=== PATIENT | female | born 1955 | race Caucasian/White ===

== ENCOUNTER → 2016-11-22 | Outpatient (CLI) | payer MEDICARE ==
--- NOTE | 2016-11-22 10:15 | XR ---
EXAMINATION TYPE: XR KUB DATE OF EXAM: 11/22/2016 9:57 AM COMPARISON: 05/11/2016 HISTORY: Left renal stones TECHNIQUE: One view abdominal series FINDINGS: The osseous structures are intact. The bowel gas pattern is nonspecific. Previous cholecystectomy cl ips noted. Left kidney: There are 3 left renal stones the largest in the lower pole measuring 1 cm. Additional p unctate adjacent fourth stone measuring 1 mm. Right kidney: There is a punctate 2 mm calcification overlying the mid right kidney suspicious for re nal stone. Radiopaque densities appear to be contained with bowel lying outside the renal outline there is exten sive retained fecal debris. Arthropathy of the hips noted and degenerative change of the spine. IMPRESSION: 1. Stable appearing nephrolithiasis
== END | disposition home or self-care (01) ==
LOC: RADXRMAIN 09:37
PROVIDERS: ATTEND Urology
DX: N20.0 Calculus of kidney (principal)
CPT/HCPCS: 74000

== ENCOUNTER → 2018-04-11 | Outpatient (CLI) | payer MEDICARE ==
--- NOTE | 2018-04-11 14:16 | XR ---
EXAMINATION TYPE: XR KUB DATE OF EXAM: 04/11/2018 COMPARISON: 11/22/2016 HISTORY: Right ureteral and left renal calculi TECHNIQUE: One view abdominal series FINDINGS: Scoliosis of the spine seen with evidence of previous gallbladder surgery. Left kidney: There are approximately 5 left-sided renal calculi the largest measuring 1.1 cm. Compare d to be stable in size and position relative to the previous exam. Right kidney: No suspicious calcifications overlying the right kidney. However, there are multiple ca lcific densities overlying the sacrum at the level the mid SI joint the largest measuring a diameter of 4.5 mm. Do not definitively see the punctate calcification seen within the suspected lower pole on today's exam. Arthropathy of the hips noted. No suspicious calcifications within the lower pelvis. IMPRESSION: 1. Stable appearing left renal nephrolithiasis as discussed and measured above. 2. There are now multiple calcifications overlying the sacrum at the level of the mid SI joint at milly st one of which likely is within the course of the ureter. The largest measures a diameter 4.5 mm. Ov erall similar in location relative to the suspected previous right-sided ureteral calculi
== END | disposition home or self-care (01) ==
LOC: RADXRMAIN 13:56
PROVIDERS: ATTEND Urology
DX: N20.0 Calculus of kidney (principal)
CPT/HCPCS: 74018

== ENCOUNTER → 2019-08-06 | Outpatient (CLI) | payer MEDICARE ==
--- NOTE | 2019-08-06 12:47 | XR ---
KUB HISTORY: Calculus of kidney Single frontal KUB correlated to prior exam 04/11/2018 The calcifications seen overlying the left kidney are no longer evident with the exception of a singl e calcification overlying the last rib on the left measuring approximately 4 mm. There are calcificat ions seen along the distribution of the distal left ureter however, at least 2 are present one of whi ch measures approximately 8 to 9 mm and the second measures approximately 12 mm. Surgical clips prese nt in the right upper quadrant. Punctate calcifications are present within the pelvis. IMPRESSION: Left nephrolithiasis, left distal ureteral calculi.
== END ==
LOC: RADXRMAIN 10:18
PROVIDERS: ATTEND Urology
DX: N20.2 Calculus of kidney with calculus of ureter (principal)
CPT/HCPCS: 74018

== ENCOUNTER → 2019-08-13 | Outpatient (CLI) | payer MEDICARE ==
--- NOTE | 2019-08-13 13:43 | CT ---
EXAMINATION TYPE: CT abdomen pelvis wo con DATE OF EXAM: 08/13/2019 COMPARISON: None HISTORY: 64-year-old female with Renal colic CT DLP: 855.3 mGycm. Automated exposure control for dose reduction was used. TECHNIQUE: Contiguous axial scanning of the abdomen and pelvis without IV contrast. Coronal and sagit christina reconstructions performed. FINDINGS: Heart size without pericardial effusion. 7 mm right basilar pulmonary nodule. No pleural effusion. Asymmetric elevation of the left hemidiaphragm. Mildly enlarged at 18.1 cm. Otherwise, noncontrast appearance of the liver, adrenal glands, spleen, a nd pancreas within normal limits. Suspect underlying parapelvic cysts within the right kidney. There is severe left-sided hydronephrosis and corresponding hydroureter with a large 1.0 cm calculus impacted in the distal third left ureter. In addition, 2 adjacent 6 mm calculi are present within the dilated mid left ureter. Couple additional nonobstructive left renal calculi measuring 6 mm in the midpole and 3 mm in the upp er pole. No dilated small bowel, free fluid, or free air. No mesenteric or retroperitoneal lymphadenopathy. Normal appendix. Mild stool wording. A couple diverticula within the distal sigmoid. No pericolonic i nflammatory change. Mild circumferential bladder wall thickening. Uterus surgically absent. Neither ovary clearly visuali zed. No abnormal fluid collection in the pelvis or pelvic lymphadenopathy. Bones: Facet arthropathy lower lumbar spine. No osseous destructive process. IMPRESSION: 1. Severe left-sided hydronephrosis and hydroureter secondary to a 1 cm stone impacted in the distal third left ureter. 2. There are two additional 6 mm calculi within the dilated mid left ureter. 3. A couple nonobstructive left renal calculi measuring 6 mm and 2 to 3 mm. 4. 7 mm right basilar pulmonary nodule is nonspecific. Recommend nonemergent contrast enhanced CT ch est to survey the entire lungs. 5. Mild circumferential bladder wall thickening may be chronic in this patient. Correlate to exclude cystitis.
== END ==
LOC: RADCTMAIN 13:04
PROVIDERS: ATTEND Urology
DX: N13.2 Hydronephrosis with renal and ureteral calculous obstruction (principal); N32.89 Other specified disorders of bladder
CPT/HCPCS: 74176

== ENCOUNTER → 2019-08-22 | Outpatient (CLI) | payer MEDICARE ==
[2019-08-22 12:13] LABS: Basophils % (A) 1 %; Eosinophils # (A) 0.1 k/uL (0-0.7); Eosinophils % (A) 2 %; HCT 43.7 % (34.0-46.0); HGB 13.9 gm/dL (11.4-16.0); Hypochromasia Slight; Lymphocytes # (A) 1.8 k/uL (1.0-4.8); Lymphocytes % (A) 28 %; MCH 28.6 pg (25.0-35.0); MCHC 31.8 g/dL (31.0-37.0); MCV 90.1 fL (80.0-100.0); Mean Platelet Volume 6.3; Monocytes # (A) 0.3 k/uL (0-1.0); Monocytes % (A) 4 %; Neutrophils # (A) 4.1 k/uL (1.3-7.7); Neutrophils % (A) 62 %; Platelet Count 318 k/uL (150-450); RBC 4.85 m/uL (3.80-5.40); RDW 13.8 % (11.5-15.5); WBC 6.6 k/uL (3.8-10.6)
[2019-08-22 20:14] LABS: African American GFR (CKD) 56.1 (60.0-200.0); Anion Gap 9.9 mmol/L (4.00-12.00); BUN/Creat Ratio 22.5 Ratio (12.00-20.00); Calcium 10.1 mg/dL (8.7-10.3); Carbon Dioxide 27.1 mmol/L (21.6-31.8); Non-African American GFR(CKD) 48.4 (60.0-200.0); Potassium 3.8 mmol/L (3.5-5.5)
== END | disposition home or self-care (01) ==
LOC: LABWHC1 11:31
PROVIDERS: ATTEND Urology
DX: N20.1 Calculus of ureter (principal); Z88.5 Allergy status to narcotic agent; Z88.6 Allergy status to analgesic agent
CPT/HCPCS: 36415; 80048; 85025

== ENCOUNTER → 2020-08-05 | Outpatient (CLI) | payer MEDICARE ==
--- NOTE | 2020-08-05 11:52 | XR ---
KUB HISTORY: N 20.0 Frontal KUB and 2 images correlated to prior KUB 08/06/2019, CT 08/13/2019 Calcification seen on previous exam of the left hemipelvis are no longer seen. There is a spinal curv ature, degenerative disc change, facet arthropathy in the lower lumbar spine. No evident bowel obstru ction or pneumoperitoneum. Lung bases are clear. Surgical clips are present right upper quadrant. Ove rlying bowel gas may obscure underlying detail, there is overlying artifact. IMPRESSION: Interval improvement in the calcifications in the left hemipelvis, the previously identif ied calcification in the upper pole of left kidney not seen definitively.
== END | disposition home or self-care (01) ==
LOC: RADXRMAIN 11:01
PROVIDERS: ATTEND Urology
DX: N20.0 Calculus of kidney (principal)
CPT/HCPCS: 74018

== ENCOUNTER → 2021-08-04 | Outpatient (CLI) | payer MEDICARE ==
--- NOTE | 2021-08-04 16:38 | XR ---
KUB HISTORY: Postop follow-up KUB submitted on 2 images and correlated to prior exam 08/05/2020 There are calcifications superimposed over the left kidney one of which measures approximately 6 mm, additional calcification measures approximately 1 to 2 mm. There is a scoliotic curvature to the spin e. Surgical clips are present in the right upper quadrant. No evident bowel obstruction or pneumoperi toneum. Bone mineralization is stable. IMPRESSION: Findings could represent left-sided nephrolithiasis.
== END | disposition home or self-care (01) ==
LOC: RADXRMAIN 13:31
PROVIDERS: ATTEND Urology
DX: N20.0 Calculus of kidney (principal)
CPT/HCPCS: 74018

== ENCOUNTER → 2022-09-29 | Outpatient (CLI) | payer MEDICARE ==
--- NOTE | 2022-09-29 12:23 | XR ---
EXAMINATION TYPE: XR KUB DATE OF EXAM: 09/29/2022 COMPARISON: NONE HISTORY: Pain TECHNIQUE: One view abdominal series FINDINGS: The osseous structures are intact. The bowel gas pattern is nonspecific. Surgical clips right upper quadrant. Hypertrophic degenerative changes in the spine. Stable 6 mm left renal calculus. There is a 1-2 mm calcification left kidney. IMPRESSION: 1. Stable left nephrolithiasis.
== END | disposition home or self-care (01) ==
LOC: RADXRMAIN 11:17
PROVIDERS: ATTEND Urology
DX: N20.0 Calculus of kidney (principal)
CPT/HCPCS: 74018

== ENCOUNTER 2022-11-30 06:44 | Day surgery (SDC) | payer MEDICARE ==
[2022-11-25 15:03] VITALS: BMI 33.8
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
--- NOTE | 2022-11-30 07:04 | XR ---
EXAMINATION TYPE: XR KUB DATE OF EXAM: 11/30/2022 6:59 AM CLINICAL HISTORY: Ureter calculus. Left-sided kidney stone TECHNIQUE: Two supine KUB images of the abdomen are obtained. COMPARISON: Abdominal x-ray September 29, 2022. FINDINGS: Prior visualized horizontal 6 mm left renal calculus not clearly seen on current study. No definite nephrolithiasis current study. Overall nonobstructive bowel gas pattern. Cholecystectomy clips redemonstrated. Additional clip below these again seen. Slight scoliotic curvature. IMPRESSION: As above.
[2022-11-30] MEDS ORDERED: HYDROmorphone 0.5 MG/0.5 ML SYRINGE IVP PRN (07:39)
[2022-11-30] MEDS ORDERED: DEXAMETHASONE SOD PHOSPHATE 4 MG/ML 1 ML VIAL IV ONE (07:39)
[2022-11-30] MEDS ORDERED: LACTATED RINGERS 1,000 ML IV SCH (07:39)
[2022-11-30] MEDS ORDERED: LIDOCAINE 1% (10MG/ML) FOR IV START INTRADERMA PRN (07:39)
[2022-11-30] MEDS ORDERED: ONDANSETRON 4 MG/2 ML VIAL IVP ONE (07:39)
[2022-11-30 08:10] LABS: Glucose,Whole Blood 189 mg/dL (70-110)
[2022-11-30 08:13] VITALS: RESP 16
[2022-11-30] MEDS ORDERED: PHENYLEPHRINE-0.9% NACL SYG 1,000 MCG/10 ML SYRINGE ONE (08:24)
[2022-11-30] MEDS ORDERED: ROCURONIUM 10 MG/ML (5 ML VIAL) IV ONE (08:24)
[2022-11-30] MEDS ORDERED: PROPOFOL 10 MG/ML 20 ML VIAL IV ONE (08:24)
[2022-11-30] MEDS ORDERED: LIDOCAINE 2% INJ 20 MG/ML (2 ML VIAL) ONE (08:24)
[2022-11-30] MEDS ORDERED: MIDAZOLAM 2 MG/2 ML VIAL ONE (08:24)
[2022-11-30] MEDS ORDERED: fentaNYL (PF) 50 MCG/ML 2 ML AMP ONE (08:24)
[2022-11-30] MEDS ORDERED: SUCCINYLCHOLINE CHLORIDE 200 MG/10 ML VIAL IV ONE (08:24)
[2022-11-30] MEDS ORDERED: IOPAMIDOL-370 50ML BTL MISCELLANE ONE (09:06)
--- NOTE | 2022-11-30 09:29 | P.OP ---
Date of Procedure: 11/30/22 Preoperative Diagnosis: Painful left renal stone Postoperative Diagnosis: Same Procedure(s) Performed: Cystoscopy, left ureteral renal renoscopy with laser lithotripsy Anesthesia: GIOVANI Surgeon: Connor Rankin Estimated Blood Loss (ml): 0 Pathology: none sent Condition: stable Disposition: PACU Indications for Procedure: The patient is 67. She has a history of kidney stones. She's been having back pain. A KUB identified a 7 mm mid renal stone on the left. She comes for urete ral renoscopy and laser lithotripsy left. Description of Procedure: Patient brought to the operating suite. Given general anesthesia. Placed lithotomy position with a sterile prep and drape. Cystoscopy identifies a normal bladder. Both ureteral orifices are normal. The left ureteral orifice is intubated with an 035 wire into the kidney. Over the wire is passed 11-13- Thai reentry sheath. I passed the flexible ureteroscope up into the kidney. The largest stone was identified and broken into tiny fragments so. There are 3 other 2 mm stones identified and broken up. Then the procedure there is no stones bigger than 1 mm a. These fragments will draining out of the kidney. The ureteroscope was removed. The bladder is drained. The patient is awakened and returned recovery room in good condition. She'll be discharged home upon recovery and found the office in 2 weeks.
[2022-11-30 09:48] VITALS: TEMP 97
--- NOTE | 2022-11-30 11:20 | FL ---
EXAMINATION TYPE: FL urography retrograde DATE OF EXAM: 11/30/2022 COMPARISON: NONE HISTORY: Fluoroscopy time. Fluoroscopy was provided to the referring clinician. 30 SECS FLUORO. [id number] gYCM2 DAP.
[2022-11-30 11:39] VITALS: BP 113/78; PULSE 76
== END 2022-11-30 11:59 | disposition home or self-care (01) ==
LOC: OR 06:44
PROVIDERS: ATTEND Urology
DX: N20.0 Calculus of kidney (principal); I48.91 Unspecified atrial fibrillation; E11.9 Type 2 diabetes mellitus without complications; K21.9 Gastro-esophageal reflux disease without esophagitis; I10 Essential (primary) hypertension; E78.5 Hyperlipidemia, unspecified; Z86.73 Personal history of transient ischemic attack (TIA), and cerebral infarction without residual deficits; Z98.890 Other specified postprocedural states; Z86.59 Personal history of other mental and behavioral disorders; Z80.0 Family history of malignant neoplasm of digestive organs; Z79.82 Long term (current) use of aspirin; Z79.899 Other long term (current) drug therapy; Z79.84 Long term (current) use of oral hypoglycemic drugs
CPT/HCPCS: 74420; 74018; 52353; C1769; J2250; J0330; J1100; J0690; J2405; J3010; J2370; J2704; Q9967; J2001

== ENCOUNTER → 2023-07-19 | Outpatient (CLI) | payer MEDICARE ==
--- NOTE | 2023-07-20 07:28 | XR ---
EXAMINATION TYPE: XR KUB DATE OF EXAM: 07/19/2023 COMPARISON: 11/30/2022 HISTORY: Left kidney stone TECHNIQUE: One view abdominal series FINDINGS: The osseous structures are intact. Degenerative changes spine. The bowel gas pattern is nonspecific. Extensive retained fecal debris throughout the colon. Surgical clips in the right upper quadrant comp atible prior cholecystectomy. IMPRESSION: 1. Subcentimeter left renal calculus previously noted not clearly seen on today's exam may be seconda ry to overlying bowel content..
== END | disposition home or self-care (01) ==
LOC: RADXRMAIN 16:15
PROVIDERS: ATTEND Urology
DX: N20.0 Calculus of kidney (principal)
CPT/HCPCS: 74018

== ENCOUNTER → 2024-03-06 | Outpatient (CLI) | payer MEDICARE ==
--- NOTE | 2024-03-06 16:38 | XR ---
EXAMINATION TYPE: XR KUB DATE OF EXAM: 03/06/2024 3:39 PM CLINICAL INDICATION:Female, 68 years old with history of N200 CALCULUS OF KIDNEY; [facility] COMPARISON: 07/19/2023. TECHNIQUE: One radiographic view of the abdomen was obtained. FINDINGS: The bowel gas pattern is nonspecific without dilated loops of small or large bowel. There i s no evidence for organomegaly or pneumoperitoneum. The osseous structures are intact. No abnormal calcifications are present. Fecal material and gas are demonstrated throughout the colon and rectum. Degeneration changes with osteophyte formation of the hips and joint space tearing. Upper quadrant c holecystectomy changes. IMPRESSION: 1. Bowel gas limits evaluation for calculi. No renal calculi definitively visualized. 2. Nonspecific bowel gas pattern without radiographic evidence for acute process.
== END | disposition home or self-care (01) ==
LOC: RADXRMAIN 15:05
PROVIDERS: ATTEND Urology
DX: N20.0 Calculus of kidney (principal); R14.3 Flatulence; Z87.442 Personal history of urinary calculi
CPT/HCPCS: 74018

== ENCOUNTER → 2024-09-25 | Outpatient (CLI) | payer MEDICARE ==
--- NOTE | 2024-09-25 15:09 | XR ---
EXAMINATION TYPE: XR KUB DATE OF EXAM: 09/25/2024 2:00 PM COMPARISON: 03/06/2024 CLINICAL INDICATION: Female, 69 years old with history of N20.0 CALCULUS OF KIDNEY, , FINDINGS: Oval areas of hypodensity within the midline lower pelvis measuring up to 1.3 cm. There is moderate to large stool burden. Cholecystectomy clips. Levoconvex curvature lumbar spine. Nonobstructive bowel gas pattern. IMPRESSION: 1. A couple oval areas of calcification midline lower pelvis measuring up to 1.3 cm. Unclear if these represent bladder stones vs medication tablets that failed to absorb and made their way to the rectu m. 2. Moderate to large stool burden. [facility], Workstation: [id number], 09/25/2024 3:07 PM
== END | disposition home or self-care (01) ==
LOC: RADXRMAIN 13:32
PROVIDERS: ATTEND Urology
DX: N20.0 Calculus of kidney (principal); R19.5 Other fecal abnormalities; Z90.49 Acquired absence of other specified parts of digestive tract
CPT/HCPCS: 74018